=== PATIENT | female | born 1970 | race Caucasian/White ===

== ENCOUNTER → 2017-05-05 | Outpatient (CLI) | payer OTHER ==
[~2017-05-05] MED LIST: IBUP-1050 PO; PHEN37.585 PO
--- NOTE | 2017-05-05 13:13 | MAMMOGRAPHY REPORT ---
BILATERAL DIGITAL DIAGNOSTIC MAMMOGRAM TOMOSYNTHESIS WITH CAD AND TARGETED LEFT ULTRASOUND: 05/05/2017 CLINICAL HISTORY: Bloody nipple discharge left breast. Palpable lump left breast. TECHNIQUE: Bilateral CC and MLO 2-D digital and tomosynthesis images, right XCCL and spot magnificati on left CC and ML views were obtained. Current study was also evaluated with a Computer Aided Detect ion (CAD) system. COMPARISON: No prior exams were available for comparison. BREAST COMPOSITION: The tissue of both breasts is heterogeneously dense, which may obscure small mas ses. FINDINGS: Brownish/bloody left nipple discharge was elicited during mammography and sonography during this diagnostic evaluation. The patient reported swelling and pain of the left breast approximately one week ago, which has since subsided. A triangular skin palpable marker overlies the 3:00 anterior left breast, denoting the palpable lump identified by the patient. There is an ovoid, 3.6 x 2.0 cm asymmetry in the retroareolar and slightl y lateral anterior aspect of the left breast, best seen on the CC view. This is in a similar locatio n as the skin palpable marker. There is no definite evidence of architectural distortion. No other focal area of architectural distortion, obvious mass or suspicious microcalcifications are seen bilat erally. There is a 12 mm lymph node projecting over the left pectoralis muscle on the MLO view. Targeted ultrasound was performed in the area of palpable lump pointed out by the patient (3:00 to 4: 00 left breast, 1 cm from the nipple) in the 3:00 periareolar left breast, there is a multilobulated isoechoic solid-appearing mass that appears intraductal. Given the multilobulated nature of the mass and multiple ectatic ducts coursing through this area accurate measurements are difficult to obtain. However it is approximately 11.4 x 10.0 x 7.3 mm. There are other ectatic ducts in the 4:00 left b reast, 1 cm from the nipple with possible intraductal mass versus debris measuring 12.1 x 6.3 x 5.3 m m. Ultrasound-guided core needle biopsy 2 is recommended in both locations, particularly with the s ymptoms of bloody nipple discharge. IMPRESSION: ACR BI-RADS CATEGORY 4B: INTERMEDIATE SUSPICION FOR MALIGNANCY, TARGETED ULTRASOUND ACR BI-RADS CATEGORY 4B: INTERMEDIATE SUSPICION FOR MALIGNANCY 1. Ultrasound guided core needle biopsy 2 is recommended in the 3:00 and 4:00 axes of the left abeba st for possible intraductal masses which could represent papillomas although DCIS cannot be completel y excluded. 2. At the time of ultrasound-guided core needle biopsy additional sonographic evaluation should be p erformed in the left axilla. A 12 mm lymph node is partially visualized on the left MLO view, but ul trasound in the axilla was not performed during this appointment. 3. No mammographic evidence of malignancy within the right breast. These results and recommendations were discussed with the patient at the time of the exam. The patie nt tentatively scheduled the left breast biopsies prior to leaving our department. Approximately 10% of breast cancers are not detected with mammography. A negative mammographic report should not delay biopsy if a clinically suggestive mass is present. Madhavi Bear M.D. ay/:05/05/2017 12:47:45 Management And Budget Analyst: Maria Del Rosario JEFFERSON(Vinnie)(Aron), [facility] letter sent: Abnormal 4/5 BI-RADS Code: ACR BI-RADS Category 4B: Intermediate Suspicion For Malignancy Ultrasound BI-RADS: ACR BI-RADS Category 4B: Intermediate Suspicion For Malignancy
== END | disposition home or self-care (01) ==
LOC: C.MAMM 09:02
PROVIDERS: ATTEND Family Medicine
DX: N64.52 Nipple discharge (principal); N63 Unspecified lump in breast; N61.0 Mastitis without abscess

== ENCOUNTER → 2017-05-21 | Outpatient (CLI) | payer OTHER ==
--- NOTE | 2017-05-21 10:07 | Discharge Instructions ---
Discharge Instructions Procedure Procedure Date: May 21, 2017. Reason for visit: LEFT MASSES x2. Discharge Discharge Date: May 21, 2017. Discharge Diagnosis: status post breast biopsy Instructions Activity Recommendations: Additional Limitations (see below) Return to School/Work: no limitations Recommended Home Diet: No Limitations Provider Instructions: ACTIVITY RECOMMENDATIONS: * No lifting, pushing, pulling or exercising the affected side for three days. RETURN TO SCHOOL/WORK: * You may return to work/school after the procedure, but do not perform any strenuous activities for 24 to 48 hours. MEDICATIONS: * Tylenol (two 325 mg) every four to six hours if needed for mild pain (if not allergic to Tylenol). DIET: * Resume previous diet. SPECIAL CARE INSTRUCTIONS: * Keep biopsy site dry for 24 hours. May shower after 24 hours, but do not soak (bathe) incision. * May remove Tegaderm (plastic patch) tomorrow AFTER showering. * Leave the steri-strips on for one week. Allow the steri-strips to fall off by themselves. If not off after one week, you may remove them. You may place a Bandaid crosswise over the strips, if desired. * Apply ice 10 minutes on and 10 minutes off as needed. * Wear a bra at bedtime to sleep more comfortably for 2-3 days. * Your referring physician should have the results after approximately 5 to 7 business days. * Call for unusual bleeding, fever, drainage, etc or if you have any questions call during normal business hours or after hours call Dr Haro, . FOLLOW UP VISIT: Follow-up with Referring Physician as scheduled. Allergies Coded Allergies: Penicillins (Unverified Allergy, Unknown, 12/29/09) Oriana Hughes Recommendations: Call your doctor if: * Temperature above 101 degrees * Pain not relieved by pain medicine ordered * There is increased drainage or redness from any incision * You have any unanswered questions or concerns. Your Doctors Instructions noted above were prepared by provider Carlee Haro. Patient Signature Section: Patient Instructions Signature Page Jeremías Leonard Patient (or Guardian) Signature/Date: I have read and understand the instructions given to me by my caregivers. Caregiver/RN/Doctor Signature/Date: The above-named patient and/or guardian has received patient instructions on this date. + Original Patient Signature Page (only) stays with chart. Please make copy for patient.
--- NOTE | 2017-05-21 13:05 | MAMMOGRAPHY REPORT ---
THIS REPORT HAS BEEN AMENDED. ULTRASOUND GUIDED BIOPSY LEFT BREAST: 05/21/2017 CLINICAL HISTORY: Two masses in the left 3 and 4:00 breast, for which biopsy was recommended. PATIENT CONSENT: The procedure, risks and benefits were discussed with the patient and informed writt en consent was obtained. A timeout was performed immediately prior to the procedure. PROCEDURE DESCRIPTION: Preprocedural ultrasound was performed of the left axilla, as recommended on the diagnostic report. There are morphologically normal left axillary lymph nodes, without evidence of adenopathy. The left 3:00 subareolar mass persists on the current exam. The previously described possible intraductal ma ss versus debris in the left 4:00 breast, 1 cm from the nipple, was not evident on the current exam; duct ectasia was seen within the left 4:00 breast without any intraductal mass evident. Therefore, t he decision was made to biopsy only the left 3:00 breast mass. With ultrasound guidance, aseptic technique, and lidocaine as the local anesthetic (1% lidocaine to a nesthetize the skin and 1% lidocaine with epinephrine to anesthetize the deeper tissues), the mass of concern in the left 3:00 subareolar breast was sampled 4 times with a 14-gauge Achieve biopsy needle . Immediately thereafter, with ultrasound guidance, aseptic technique, and lidocaine as the local an esthetic, a metallic localizer clip was placed at the biopsy site. Direct pressure was applied to th e site immediately post procedure and hemostasis was achieved. Postprocedure unilateral mammograms w ere performed to confirm clip placement. The patient tolerated the procedure without complication. She was given wound care instructions. The specimens were sent to pathology for analysis. COMPARISON: Comparison is made to exams dated: 05/05/2017 ultrasound and 05/05/2017 mammogram - [facility]. IMPRESSION: ULTRASOUND GUIDED BIOPSY 1. Ultrasound guided core needle biopsy of the left 3:00 subareolar breast mass, with clip placement . The patient will receive pathology results from her referring provider. 2. The previously seen possible intraductal mass versus debris in the left 4:00 breast was not evide nt on the current exam. Therefore, biopsy was not performed. 3. No evidence of left axillary adenopathy. Carlee Haro M.D. ah/:05/21/2017 10:10:42 Tag Maker: Maria Del Rosario Lagunas, [facility] AMENDMENT: 05/28/2017 Carlee Haro M.D. The pathology of ultrasound-guided biopsy of a left 3 o'clock breast mass was reviewed on 05/28/2017. The pathology shows an intraductal papilloma, which is concordant with the imaging findings. Surgica l excision is recommended, especially given the history of bloody nipple discharge.
--- NOTE | 2017-05-21 13:05 | MAMMOGRAPHY REPORT ---
UNILATERAL LEFT DIGITAL DIAGNOSTIC MAMMOGRAM TOMOSYNTHESIS: 05/21/2017 CLINICAL HISTORY: Status post ultrasound-guided biopsy of left 3:00 breast mass. TECHNIQUE: Breast tomosynthesis in addition to standard 2D mammography was performed. Left CC and M L tomosynthesis images including C views were obtained post procedure. COMPARISON: Comparison is made to exams dated: 05/21/2017 ultrasound biopsy, 05/05/2017 ultrasound, an d 05/05/2017 mammogram - [facility]. BREAST COMPOSITION: The tissue of the left breast is heterogeneously dense, which may obscure small masses. FINDINGS: A new marker clip is seen in the expected location of the biopsied left 3:00 subareolar br east mass. No significant postbiopsy hematoma is seen. IMPRESSION: POST PROCEDURE IMAGING FOR MARKER PLACEMENT New biopsy marker clip status post ultrasound-guided biopsy of the left 3:00 subareolar breast mass. Pathology results are pending. Approximately 10% of breast cancers are not detected with mammography. A negative mammographic report should not delay biopsy if a clinically suggestive mass is present. Carlee Haro M.D. /:05/21/2017 10:17:00 Line Palletizer: Maria Del Rosario Lagunas, [facility] BI-RADS Code: Post Procedure Imaging For Marker Placement
== END | disposition home or self-care (01) ==
LOC: C.MAMM 09:33
PROVIDERS: ATTEND Family Medicine
DX: N63 Unspecified lump in breast (principal); N64.9 Disorder of breast, unspecified

== ENCOUNTER → 2017-05-29 | Outpatient (CLI) | payer OTHER | END | disposition home or self-care (01) | LOC: C.PAPS 11:54 | PROVIDERS: ATTEND Family Medicine | DX: Z12.72 Encounter for screening for malignant neoplasm of vagina (principal) ==

== ENCOUNTER → 2017-06-05 | Outpatient (CLI) | payer OTHER ==
--- NOTE | 2017-06-05 12:25 | DIAGNOSTIC IMAGING REPORT ---
PELVIC COMPLETE NON OB CLINICAL HISTORY: SWELLING, MASS AND LUMP MASS COMPARISON STUDY: None FINDINGS: The uterus measured 8.5 cm.. The endometrial stripe measured 1.4 cm. Possible 1.6 x 1.0 cm polyp versus heterogeneous thickened endometrium at the central canal. The right ovary measured 2.9 cm with normal vascular flow. The left ovary measured 2.7 cm normal vascular flow. There is no ultrasonographic evidence of ovarian torsion. It should be noted that ovarian torsion can be present with normal Doppler ultrasonographic findings. There was no evidence of pathologic free pelvic fluid. IMPRESSION: 1. Abnormal thickening of the endometrium with the possibility of a central Canal polypoid lesion raised. 2. Further evaluation is recommended to exclude the possibility of endometrial hyperplasia, neoplasia, versus central canal endometrial polyps The above report was generated using voice recognition software. It may contain grammatical, syntax or spelling errors. Electronically signed by: Moses Kaiser M.D. 06/05/2017 12:24 PM Dictated Date/Time: 06/05/2017 12:19 PM
== END | disposition home or self-care (01) ==
LOC: C.ULTR 08:33
PROVIDERS: ATTEND Family Medicine
DX: R22.9 Localized swelling, mass and lump, unspecified (principal)

== ENCOUNTER → 2017-06-26 | Day surgery (SDC) | payer OTHER ==
[2017-06-17 07:43] VITALS: Ht 167.6 cm; Wt 92.3 kg
--- NOTE | 2017-06-23 11:22 | HISTORY & PHYSICAL EXAMINATION ---
DATE OF ADMISSION: 06/26/2017 CHIEF COMPLAINT: Heavy vaginal bleeding with clotting. HISTORY OF PRESENT ILLNESS: The patient is a 46-year-old 2, para 2. General health is good. She is on no chronic pills or medications, using condoms for control. SHE IS ALLERGIC TO PENICILLIN WHICH GIVES HER HIVES. Has heavy bleeding for over 10 years. Periods are described as every 28-45 days, lasting for 6+ days. She has extremely heavy bleeding 2 days, soaks a pad and a tampon at the same time in under an hour and for 2-3 days each month she is unable to leave the house. She had a transvaginal ultrasound done on 06/05/2017, showed thickening of the endometrium and suggestive of an endometrial polyp. Endometrium was over 1.4 cm thick. She is presently being scheduled for an outpatient D&C, hysteroscopy. PAST MEDICAL HISTORY: Two children in good health. SURGICAL HISTORY: She has had T&A. MEDICAL HISTORY: No history of rheumatic fever, heart disease, heart murmur, diabetes, tuberculosis. ALLERGIES: ALLERGIC TO PENICILLIN WHICH GIVES HER HIVES. SOCIAL HISTORY: Half a pack a day smoker for 21 years. No history of alcohol intake. 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 FAMILY HISTORY: Mom is 62, in relatively good health. Father at age 48 of a pulmonary embolus, was overweight. Two brothers and 1 sister, all in good health. REVIEW OF SYSTEMS: She has a history of migraine headaches as a teenager, which have subsided on their own. PHYSICAL EXAMINATION: GENERAL: Well-developed, well-nourished 46-year-old white female, alert, oriented x3 and cooperative, in no acute distress, appears her stated age. EYES: Conjunctivae are pink. Sclerae white. No evidence of jaundice. EARS: Normal light reflex bilaterally. NOSE: Normal mucosa. Septum is midline. There are no polyps. THROAT: No erythema or evidence of infection. Teeth are in good state of repair. HEAD: Normocephalic, normal distribution of hair. NECK: Supple. Trachea midline. Thyroid is not enlarged. There is no adenopathy appreciated. Both carotids are of good intensity. CHEST: Clear to auscultation and percussion. No wheezes, rales or rhonchi appreciated. HEART: Regular rhythm. S1 and S2 are normal. BREASTS: Normal. ABDOMEN: Soft and nontender. PELVIC: Reveals a normal appearing cervix. Uterus is top normal size, anteverted. There are no adnexal masses appreciated. MUSCULOSKELETAL: No calf tenderness. IMPRESSIONS OF THIS CASE: Status post T&A and hypermenorrhea, abnormal transvaginal ultrasound. Transvaginal ultrasound suggestive of endometrial polyp.
[2017-06-23 12:17] LABS: BASO % 0.7 %; BASO ABS # 0.06 K/uL (0-0.2); COMPLETE YES; EOS % 2.6 %; HEMATOCRIT 40.4 % (37-47); IG% 0.2 %; LYMPH % 29.8 %; LYMPH ABS # 2.44 K/uL (1.2-3.4); MEAN CELL VOLUME 90.8 fL (80-100); MEAN CORPUSCULAR HEMOGLOBIN 30.8 pg (25-34); MEAN CORPUSCULAR HGB CONC 33.9 g/dl (32-36); MEAN PLATELET VOLUME 10.9 fL (7.4-10.4); MONO % 6.6 %; NEUT % 60.1 %; PLATELET COUNT 339 K/uL (130-400); RED BLOOD COUNT 4.45 M/uL (4.2-5.4); WHITE BLOOD COUNT 8.18 K/uL (4.8-10.8)
[2017-06-23 12:45] LABS: PREG INTERNAL NEGATIVE QC NEG CLEAR BACKGROUND; PREG INTERNAL POSITIVE QC POS CONTROL LINE
[~2017-06-26] VITALS: Ht 167.6 cm; Wt 92.3 kg
[~2017-06-26] MED LIST changes: +ATROPINE SULFATE 0.1 MG/ML 5ML SYR IV PRN; +DEXAMETHASONE SOD INJ 4 MG/ML VIAL ONE; +EpHEDrine SULFATE INJ 50 MG/ML AMP IV PRN; +FENTANYL CITRATE INJ 50 MCG/1 ML 2 ML VIAL IV PRN; +FENTANYL CITRATE INJ 50 MCG/1 ML 2 ML VIAL ONE; +HYDROCODONE/ACETAMOPHEN 5/325MG TAB PO PRN; +HYDROmorphone INJ 1 MG/ML SYR IV PRN; +IBUPROFEN 600 MG TAB PO PRN; +KETOROLAC TROMETHAMINE 30 MG/ML VIAL IV. PRN; +KETOROLAC TROMETHAMINE 30 MG/ML VIAL ONE; +LACTATED RINGER'S 1000ML 1,000 ML IV SCH; +LIDOCAINE HCL 2% 2 ML VIAL (20MG/ML) ONE; +MIDAZOLAM HCL 1 MG/ML 2ML VIAL ONE; +ONDANSETRON INJ 2 MG/ML 2 ML VIAL IV PRN; +ONDANSETRON INJ 2 MG/ML 2 ML VIAL ONE; +OXYCODONE/ACETAMINOPHEN 5-325 TAB PO PRN; +PROMETHAZINE HCL INJ 12.5 MG in SODIUM CHLORIDE 0.9% 50ML 50 ML IV PRN; +PROPOFOL IV EMULSION 10 MG/ML 20 ML VIAL IV ONE; +SODIUM CHLORIDE 0.9% 1000ML 1,000 ML IV SCH
--- NOTE | 2017-06-26 08:15 | History & Physical Bridge Note ---
H&P Re-Evaluation Bridge Note: I have examined the patient, reviewed the History & Physical and in the interval since the performance of the History & Physical I have noted the following changes of clinical significance: No changes noted
--- NOTE | 2017-06-26 08:57 | [facility] Post Operative Brief Note ---
Immediate Operative Summary Operative Date Jun 26, 2017. Pre-Operative Diagnosis Hypermenorrhea, Dysmenorrhea Post-Operative Diagnosis Same Procedure(s) Performed Dilatation And Curettage, Hysteroscopy, Polypectomy Surgeon Dr Vieira Telephone Clerks Supervisor Surgeon(s) None Estimated Blood Loss 10ml Findings UTERUS SOUNDED TO 11 CM LARGE POLYP NOTED ON HYSTEROSCOPY Specimens A: Endometrial Currettings B: Uterine Polyp Complication(s) None Disposition Recovery Room / PACU
--- NOTE | 2017-06-26 08:59 | Discharge Instructions ---
Discharge Instructions Date of Service Jun 26, 2017. Visit Reason for Visit: Hypermenorrhea, Dysmenorrhea Discharge Discharge Diagnosis / Problem: UTERINE PROLAPSE LARGEENDOMETRIAL POLYP Discharge Goals Goal(s): Improve function, Learn about illness Medications Stopped Medications Name(s): Adipex stopped 06/13/17. Activity Recommendations Activity Limitations: as noted below ACTIVITY RECOMMENDATIONS: * Avoid tampons, douching, hot tubs, pools, and intercourse until bleeding has stopped. * May shower as usual. * No strenuous activity for 24-48 hours. After 24-48 hours, you may do anything you feel like doing (driving and sports are okay). SPECIAL CARE INSTRUCTIONS: Special Diet: * Mild nausea may occur in the immediate post-operative period. * Take clear liquids such as tea, cola or bouillon until all nausea has subsided; you may then resume your normal diet. Special Care: * Light bleeding and vaginal spotting can last from a few days to 3-4 weeks. Call your doctor if bleeding becomes heavier than the heaviest part of your period. * Check your temperature twice a day for one week. If it goes above 100.4 degrees Fahrenheit (38.0 Celsius), notify your doctor. * Call your doctor's office for an appointment for 6 weeks after your surgery. FOLLOW-UP VISIT: Call your doctor's office for an appointment for 6 weeks after your surgery. Anesthesia . Post Anesthesia Instructions: If you have had General Anesthesia or IV Sedation: * Do not drive today. * Resume driving when surgeon permits. * Do not make important decisions or sign legal documents today. * Call surgeon for: 1. Temperature elevations greater than 101 degrees F. 2. Uncontrollable pain. 3. Excessive bleeding. 4. Persistent nausea and vomiting. 5. Medication intolerance (nausea, vomiting or rash). * For nausea and vomiting use only clear liquids such as: tea, soda, bouillon until nausea subsides, then gradually increase diet as tolerated. * If you have any concerns or questions, call your surgeon's office. If physician is unavailable and it is an emergency, call 911 or go to the nearest emergency room. . Diet Recommendations Recommended Home Diet: resume previous diet Procedures Procedures Performed: Dilatation And Curettage, Hysteroscopy, Polypectomy Pending Studies Studies pending at discharge: no Medical Emergencies . Who to Call and When: Medical Emergencies: If at any time you feel your situation is an emergency, please call 911 immediately. . Non-Emergent Contact Non-Emergency issues call your: Regional Sales Director Call Non-Emergent contact if: temperature is above 100.5 . . "Provider Documentation" section prepared by Trevor Vieira. .
--- NOTE | 2017-06-26 09:07 | [facility] Operative Report ---
Operative Report Date of Service Jun 26, 2017. Operative Report Preoperative diagnosis hypermenorrhea abnormal transvaginal ultrasound sound. Postoperative diagnosis enlarged retroverted uterus sounded to 11 cm large polyp noted on hysteroscopy. Procedure hysteroscopic examination dilatation of the cervix sharp curettage of the endometrial cavity removal of large polyp procedure as previously stated. Surgeon Dr. Vieira estimated blood loss 10 mL anesthesia Gen. operative finding and procedure. Patient was brought to the OR table correctly identified by armband and conversation. A catheter was used to empty the bladder. Careful pelvic exam under anesthesia revealed an enlarged uterus to about 10 weeks gestational size acutely retroverted. A weighted speculum was placed in posterior vagina. Anterior lip of the cervix was clasped grasped with an Allis. Uterus was sounded to 11 cm. Graduated dilators were used to dilate the cervix. A hysteroscope with normal saline distention medium was inserted into the uterine cavity. Inspection of the uterine cavity revealed a large polyp attached to the posterior wall of the uterus. Photographs were taken. The hysteroscope was removed. An open forceps was inserted into the uterus opened and closed several times large amounts of tissue were removed. Following this a sharp curet was placed in uterine cavity and all 4 quadrants of the uterus was thoroughly and systematically curetted. This was productive of an additional moderate amount of tissue. All tissues were submitted for pathological evaluation. The polyp tissue was submitted separately. Estimated blood loss was 10 mL. Patient left the OR in good condition. I attest to the content of the Intraoperative Record and any orders documented therein. Any exceptions are noted below.
[2017-06-26 09:35] VITALS: TEMP 37
[2017-06-26 09:54] VITALS: BP 112/77; PULSE 54; O2SAT 99
--- NOTE | 2017-06-26 09:59 | Anesthesia Progress Nt - [facility] ---
Anesthesia Post Op Note Date & Time Jun 26, 2017 at 09:59 Vital Signs Pain Intensity: 2 Vital Signs Past 12 Hours Date Time Temp Pulse Resp B/P (MAP) Pulse Ox O2 Delivery O2 Flow Rate FiO2 06/26/17 09:35 37.0 66 16 121/80 (94) 100 Room Air 06/26/17 09:26 36.6 107/71 06/26/17 09:22 65 21 06/26/17 09:22 66 21 98 06/26/17 09:21 113/79 06/26/17 09:17 71 32 06/26/17 09:17 71 32 112/57 98 06/26/17 09:12 67 6 98 06/26/17 09:12 68 6 06/26/17 09:11 114/76 06/26/17 09:07 78 18 121/69 100 06/26/17 09:07 77 18 06/26/17 09:02 80 13 06/26/17 09:02 79 13 99 06/26/17 09:01 119/84 06/26/17 08:58 36.3 80 16 125/86 98 Mask 6 06/26/17 08:58 125/86 06/26/17 08:57 88 58 06/26/17 08:57 87 58 99 06/26/17 07:32 36.8 92 20 119/80 (93) 98 Room Air Notes Mental Status: alert / awake / arousable, participated in evaluation Pt Amnestic to Procedure: Yes Nausea / Vomiting: adequately controlled Pain: adequately controlled Airway Patency, RR, SpO2: stable & adequate BP & HR: stable & adequate Hydration State: stable & adequate Anesthetic Complications: no major complications apparent
== END | disposition home or self-care (01) ==
LOC: X.SURG 07:21
PROVIDERS: ATTEND Obstetrics & Gynecology
DX: N92.0 Excessive and frequent menstruation with regular cycle (principal); N84.0 Polyp of corpus uteri; F17.200 Nicotine dependence, unspecified, uncomplicated